=== PATIENT | male | born 1980 | race Caucasian/White ===

== ENCOUNTER 2019-06-20 09:00 | Emergency (ER) | payer SELFPAY ==
[~2019-06-20] VITALS: Ht 172.7 cm; Wt 84.1 kg
[2019-06-20 09:13] VITALS: TEMP 98.1
[2019-06-20] MEDS ORDERED: FLEXERIL 1010 MG/TAB PO (11:01)
[2019-06-20] MEDS ORDERED: MOBIC 7.5MG7.5 MG PO (11:01)
[2019-06-20 12:06] VITALS: BP 136/78; PULSE 65
== END 2019-06-20 12:08 | disposition home or self-care (01) ==
LOC: COL.ER 09:00
DX: S16.1XXA Strain of muscle, fascia and tendon at neck level, initial encounter (principal); R40.2410 Glasgow coma scale score 13-15, unspecified time; V43.52XA Car driver injured in collision with other type car in traffic accident, initial encounter; Y92.410 Unspecified street and highway as the place of occurrence of the external cause